=== PATIENT | male | born 2000 | race Caucasian/White ===

== ENCOUNTER 2022-10-03 14:10 | Outpatient (OUT) | payer BC, SELFPAY ==
--- NOTE | 2022-10-03 14:30 | XR_ITS ---
The [address] [address] Patient Name: CIRILO KING MRN: [id number] date: 2000 Sex: M Assigned Patient Location: [facility] Current Patient Location: [facility] Accession/Order Number: [id number] Exam Date: 10/03/2022 14:30 Report Date: 10/03/2022 15:26 At the request of: MARTINEZ FERNANDEZ Procedure: XR thoracic spine 3V EXAMINATION: XR thoracic spine 3V HISTORY: Pain in thoracic spine M54.6 COMPARISON: No relevant comparison available. FINDINGS: BONES: Mild widespread spondylosis and facet osteoarthritis. No visible acute bony abnormality. DISC SPACES: Normal. No significant disc height narrowing, subluxation, or endplate abnormality. PARASPINOUS: Negative. No paraspinous abnormality is seen. OTHER: Negative. XR/XR thoracic spine 3V IMPRESSION: Mild degenerative changes Electronically authenticated by: COLBY COPE Date: 10/03/2022 15:26
== END 2022-10-03 14:11 | disposition home or self-care (01) ==
LOC: RAD 14:20
PROVIDERS: PCP Family Medicine; Visit Provider Family Medicine
DX: M54.6 Pain in thoracic spine (principal)
CPT/HCPCS: 72072

== ENCOUNTER 2023-11-08 19:17 | Emergency (ER) | payer BC, SELFPAY ==
[2023-11-08 19:27] VITALS: BP 147/97; PULSE 88; TEMP 36.6; O2SAT 100; BMI 32.5
--- NOTE | 2023-11-08 19:30 | ECG_ITS ---
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
--- NOTE | 2023-11-08 19:42 | ED.CHESTPAI1 ---
HPI - Chest Pain General Chief Complaint: Chest Pain Stated Complaint: Chest Pain Time Seen by Provider: 11/08/23 19:36 Source: patient Mode of arrival: walk-in History of Present Illness HPI narrative: This 23-year-old male who occasionally smokes marijuana but does not smoke cigarettes presents for evaluation of a frontal headache that started earlier in the day. The patient states that he does get a history of migraine headaches. He left work early this morning and went home and took a nap after taking some Excedrin and when he woke up he still had a headache and developed left-sided chest pain with some mild shortness of breath. He does not have a fever. He denies any nausea or vomiting. He has no abdominal pain or back pain. He also states that he feels that he has more bruising than his normal for somebody his age. He does not have any lower extremity pain or swelling. There was no thunderclap presentation of the headache. At this time it is over his left eye and his chest pain is nonradiating and over his left chest wall. He denies any dizziness or diaphoresis. He denies any syncope. Related Data Home Medications ?Medication ?Instructions ?Recorded ?Confirmed No Known Home Medications 11/08/23 11/08/23 Allergies Allergy/AdvReac Type Severity Reaction Status Date / Time No Known Drug Allergies Allergy Verified 11/08/23 19:31 Review of Systems ROS Status of ROS 10 or more systems reviewed and unremarkable except as noted in history and below Exam Narrative Exam Narrative: Vital signs and Nursing Notes reviewed: Vital signs reviewed, the patient is afebrile with a normal pulse, blood pressure is elevated at 147/97, he is not hypoxic with pulse ox of 100% on room air General: Awake, alert, oriented, no acute distress, moderately overweight male, no respiratory distress HEENT: Normocephalic atraumatic, mucous membranes are moist and pink, eyes are clear, normal conjunctiva, vision is grossly intact, posterior pharynx is normal in appearance. Neck: Supple, no meningeal signs, no anterior or posterior cervical lymphadenopathy Chest: Lungs are clear to auscultation with good air entry, there is no wheezing rhonchi or rales appreciated no accessory muscle use, patient is speaking in complete sentences-no chest wall tenderness to palpation CVS: Regular rate and rhythm S1-S2, no murmurs rubs or gallops, pulses are brisk and equal bilaterally ABD: Soft, nondistended, nontender, no rebound guarding or rigidity, bowel sounds are normal, no pulsatile masses appreciated Extremities: Moving all extremities, no lower extremity tenderness or swelling noted, negative Homans' sign, pulses are brisk and equal bilaterally Skin: Normal in appearance without rash,pallor, petechiae or purpura Neuro: No focal deficits Constitutional Vital Signs, click to edit/add: Last Vital Signs Temp 97.8 F 11/08/23 19:27 Pulse 88 11/08/23 19:27 Resp 18 11/08/23 19:27 BP 147/97 H 11/08/23 19:27 Pulse Ox 100 11/08/23 19:27 O2 Del Method Room Air 11/08/23 19:27 Course Vital Signs Vital signs: Vital Signs Temperature 97.8 F 11/08/23 19:27 Pulse Rate 88 11/08/23 19:27 Respiratory Rate 18 11/08/23 19:27 Blood Pressure 147/97 H 11/08/23 19:27 Pulse Oximetry 100 11/08/23 19:27 Oxygen Delivery Method Room Air 11/08/23 19:27 Temperature 97.8 F 11/08/23 19:27 Pulse Rate 88 11/08/23 19:27 Respiratory Rate 18 11/08/23 19:27 Blood Pressure 147/97 H 11/08/23 19:27 Pulse Oximetry 100 11/08/23 19:27 Oxygen Delivery Method Room Air 11/08/23 19:27 MDM - Chest Pain MDM Narrative Medical decision making narrative: This 23-year-old male who vapes marijuana but otherwise is a non-smoker presents for evaluation of a headache that started earlier this morning and chest pain that started this afternoon after taking a nap. He has not had any fevers or chills. He states his chest pain is associated with shortness of breath. Chest pain is localized to the left side of his chest. His lungs are clear, abdomen is soft, there is no neurologic symptoms related to his headaches. EKG done upon arrival was a normal sinus rhythm with no acute findings. An IV was placed and he was medicated with Toradol with clinical improvement in his chest pain and headache. Routine labs are ordered and reviewed. He has a normal white count and hemoglobin. Electrolytes are normal. Troponin and D-dimer are both normal. The results of this was discussed with the patient and he will receive a 1 view chest x-ray prior to being discharged. I suggested that his symptoms might be viral in nature. He declines a COVID-19 test. CXR was reviewed by myself and does not show any acute findings. The patient will be discharged home at this time with recommendation for close follow-up with his family physician. Lab Data Attestation: I reviewed the patient's lab results. Labs: Lab Results 11/08/23 Range/Units 19:50 WBC 6.5 (4.0-11.0) 10^3/uL RBC 5.58 (4.70-6.10) 10^6/uL Hgb 15.1 (14.0-18.0) g/dL Hct 45.6 (42.0-54.0) % MCV 81.7 (80.0-94.0) fL MCH 27.1 (25.9-34.0) pg MCHC 33.1 (29.9-35.2) g/dL RDW 13.1 (11.0-15.0) % Plt Count 310 (150-450) 10^3/uL MPV 9.6 (9.5-13.5) fL Neut % (Auto) 45.9 (43.0-75.0) % Lymph % (Auto) 46.2 (20.5-60.0) % [place] % (Auto) 5.7 (1.7-12.0) % Eos % (Auto) 1.1 (0.9-7.0) % Baso % (Auto) 0.8 (0.2-2.0) % Neut # (Auto) 3.0 (1.4-6.5) 10^3/uL Lymph # (Auto) 3.0 (1.2-3.8) 10^3/uL [place] # (Auto) 0.4 (0.3-0.8) 10^3/uL Eos # (Auto) 0.1 (0.0-0.7) 10^3/uL Baso # (Auto) 0.1 (0.0-0.1) 10^3/uL Abs Immat Gran (auto) 0.02 (0.00-0.03) 10^3/uL Imm/Tot Granulo (auto) 0.3 (0.0-0.5) % D-Dimer <0.19 (<=0.59) mg/L FEU Sodium 138 (136-145) mmol/L Potassium 3.5 (3.5-5.1) mmol/L Chloride 102 (98-107) mmol/L Carbon Dioxide 29.2 (21.0-32.0) mmol/L Anion Gap 10.3 BUN 16.0 (7.0-18.0) mg/dL Creatinine 1.13 (0.70-1.30) mg/dL Est GFR ( Amer) >60 (>=60) Est GFR (Non-Af Amer) >60 (>=60) BUN/Creatinine Ratio 14.2 Glucose 140 H (74-106) mg/dL Calcium 9.3 (8.5-10.1) mg/dL Total Bilirubin 0.6 (0.2-1.0) mg/dL AST 21 (15-37) U/L ALT 32 (16-63) U/L Alkaline Phosphatase 64 (46-116) U/L Troponin I High Sens 4.0 (4.0-76.1) pg/mL Total Protein 7.9 (6.4-8.2) g/dL Albumin 4.3 (3.4-5.0) g/dL Globulin 3.6 g/dL Albumin/Globulin Ratio 1.2 ECG Data Attestation: I personally reviewed and interpreted this ECG as follows: (Sinus rhythm at 90 bpm, normal axis, nonspecific ST changes, no acute ST segment elevation or T wave inversion right axis deviation) Discharge Plan Discharge Stand Alone Forms: Work/School Release, Portal Instructions Chief Complaint: Chest Pain Clinical Impression: Non-cardiac chest pain, Headache, migraine Patient Disposition: Home, Self-Care Time of Disposition Decision: 21:05 Condition: Good Prescriptions / Home Meds: No Action No Known Home Medications Print Language: Setswana Instructions: Migraine Headache (ED), Noncardiac Chest Pain (ED) Referrals: Sydni Nino MD [Primary Care Provider] - 1 week
[2023-11-08] MEDS: KETOROLAC TROMETHAMINE 30 MG/ML VIAL IVP (19:58)
[2023-11-08 19:59] LABS: Basophils Absolute Auto 0.1 10^3/uL (0.0-0.1); Basophils Percent Auto 0.8 % (0.2-2.0); Eosinophils Absolute Auto 0.1 10^3/uL (0.0-0.7); Eosinophils Percent Auto 1.1 % (0.9-7.0); Hematocrit 45.6 % (42.0-54.0); Hemoglobin 15.1 g/dL (14.0-18.0); Immature Granulocytes Abs Auto 0.02 10^3/uL (0.00-0.03); Immature Granulocytes Pct Auto 0.3 % (0.0-0.5); Lymphocytes Percent Auto 46.2 % (20.5-60.0); Mean Corpuscular HGB Conc 33.1 g/dL (29.9-35.2); Mean Corpuscular Hemoglobin 27.1 pg (25.9-34.0); Mean Corpuscular Volume 81.7 fL (80.0-94.0); Mean Platelet Volume 9.6 fL (9.5-13.5); Monocytes Absolute Auto 0.4 10^3/uL (0.3-0.8); Monocytes Percent Auto 5.7 % (1.7-12.0); Neutrophils Percent Auto 45.9 % (43.0-75.0); Platelet Count 310 10^3/uL (150-450); Red Blood Count 5.58 10^6/uL (4.70-6.10); Red Cell Distribution Width 13.1 % (11.0-15.0); White Blood Count 6.5 10^3/uL (4.0-11.0)
[2023-11-08 20:14] LABS: Alanine Aminotransferase 32 U/L (16-63); Albumin Globulin Ratio 1.2; Albumin Level 4.3 g/dL (3.4-5.0); Alkaline Phosphatase 64 U/L (46-116); Anion Gap 10.3; Aspartate Amino Transferase 21 U/L (15-37); BUN Creatinine Ratio 14.2; Bilirubin Total 0.6 mg/dL (0.2-1.0); Calcium 9.3 mg/dL (8.5-10.1); Carbon Dioxide 29.2 mmol/L (21.0-32.0); Chloride 102 mmol/L (98-107); Estimated GFR (African America >60 (>=60); Estimated GFR (Non-African Ame >60 (>=60); Globulin 3.6 g/dL; Glucose 140 mg/dL (74-106); Potassium 3.5 mmol/L (3.5-5.1); Sodium 138 mmol/L (136-145); Total Protein 7.9 g/dL (6.4-8.2)
[2023-11-08 20:48] LABS: D Dimer <0.19 mg/L FEU (<=0.59)
--- NOTE | 2023-11-08 20:50 | XR_ITS ---
[address] [address] Patient Name: CIRILO KING MRN: [id number] date: 2000 Sex: M Assigned Patient Location: ER Current Patient Location: Accession/Order Number: [id number] Exam Date: 11/08/2023 20:58 Report Date: 11/08/2023 22:08 At the request of: ESPERANZA MARKER Procedure: XR chest 1V EXAM: XR Chest, 1 View CLINICAL INDICATION: CP TECHNIQUE: Frontal view of the chest. COMPARISON: 2020 FINDINGS: LUNGS AND PLEURAL SPACES: Unremarkable. No consolidation. No pneumothorax. HEART: Unremarkable. No cardiomegaly. MEDIASTINUM: Unremarkable. Normal mediastinal contour. BONES/JOINTS: Unremarkable. No acute fracture. XR/XR chest 1V IMPRESSION: Normal chest x-ray. Electronically authenticated by: CECILIA SIMONS Date: 11/08/2023 22:08
== END 2023-11-08 21:25 | disposition home or self-care (01) ==
PROVIDERS: Emergency Provider Emergency Medicine; PCP Family Medicine
DX: G43.909 Migraine, unspecified, not intractable, without status migrainosus (principal); R07.89 Other chest pain; F12.90 Cannabis use, unspecified, uncomplicated
CPT/HCPCS: 36415; 71045; 80053; 84484; 85025; 85378; 93005; 96374; 99285; J1885

== ENCOUNTER 2024-08-31 09:39 | Outpatient (OUT) | payer BC, SELFPAY ==
--- OUTSIDE RECORDS SUMMARY | 2024-08-31 09:51 | XMS_ITS | CCD ---
Author Organization [facility] Care Team Providers Care Custodial Aide Name Role Phone PHYSICIAN, DEFAULT Unavailable Unavailable PHYSICIAN, DEFAULT Unavailable Unavailable REBECCA, DR SYDNI Arora Admitting Unavailable REBECCA, DR SYDNI Arora Primary Care Unavailable REBECCA, DR SYDNI Arora Attending Unavailable [place]ILDA, DR COLBY Peguero Consulting Unavailable REBECCA, DR SYDNI Arora Admitting Unavailable REBECCA, DR SYDNI Arora Primary Care Unavailable REBECCA, DR SYDNI Arora Attending Unavailable REBECCA, DR SYDNI Arora Consulting Unavailable Rebecca Magdaleno Unavailable Sydni Nino Sydni Nino MD Primary Care Provider Sydni Nino MD Attending Provider Sydni Nino Attending Unavailable Sydni Nino Primary Care Unavailable Sydni Nino Admitting Unavailable Medications Current Medications Medication Drug Class(es) Dates Sig (Normalized) Sig (Original) acetaminophen 500 mg oral tablet (1 source) take 1 tablet by mouth every six hours as needed Acetaminophen 500 MG 1 tablet as needed Orally every 6 hrs Active amoxicillin 500 mg oral capsule (1 source) Penicillin-class Antibacterial Start: 11-29-2022 take 1 capsule by mouth every eight hours Amoxicillin 500 MG 1 capsule Orally tid for 10 day(s) Nov, Active cetirizine hydrochloride 10 mg chewable tablet (12 sources) Histamine-1 Receptor Antagonist Start: 05-13-2023 take 1 tablet by mouth once daily Cetirizine 10 mg tablet,chewable Active 10 MG PO Daily May 13, 2023 1:00am take 1 tablet by mouth once leonidas y ZyrTEC 10 MG 1 tablet Orally Once a day Active DayQuil Multi-Symptom (1 source) DayQuil Multi-Symptom Active methylPREDNISolone 4 mg oral tablet (1 source) Corticosteroid Start: 023 Medrol 4 MG as directed Orally As Directed for 6 days Jan, Active NyQuil (1 source) NyQuil Active predniSONE 20 mg oral tablet (1 source) Start: 023 take 1 tablet by mouth every twelve hours predniSONE 20 MG 1 tablet Orally bid for 5 day(s) Sep, Active Sudafed 12 Hour (1 source) Sudafed 12 Hour Active tiZANidine 4 mg oral tablet (2 sources) Central alpha-2 Adrenergic Agonist take 1 tablet by mouth every eight hours tiZANidine HCl 4 MG 1 tablet as needed Orally Three times a day for 10 days Active Completed/Discontinued Medications Medication Drug Class(es) Dates Sig (Normalized) Sig (Original) amoxicillin 875 mg / clavulanate 125 mg oral tablet (6 sources) Penicillin-class Antibacterial Start: 05-14-2023 End: 06-15-2023 take 1 tablet by mouth twice daily Amoxicillin-Pot Clavulanate 875-125 mg tablet Discontinued 1 TAB PO Twice daily May 14, 2023 1:00am June 15, 2023 10:07am azithromycin 250 mg oral tablet (6 sources) Macrolide Antimicrobial Start: 05-11-2023 End: 06-15-2023 Azithromycin 250 mg tablet Discontinued 0 PO .COMPLEX May 11, 2023 1:00am June 15, 2023 10:07am For 250 mg dose pack: take 500 mg today (day 1), then 250 mg for 4 days (days 2-5) PO Start: 05-11-2023 End: 06-15-2023 Azithromycin Discontinued 0 PO .COMPLEX May 11, 2023 1:00am June 15, 2023 10:07am For 250 mg dose pack: take 500 mg today (day 1), then 250 mg for 4 days (days 2-5) PO losartan potassium 50 mg oral tablet (7 sources) Angiotensin 2 Receptor Amado Start: 12-17-2023 End: 03-15-2024 take 1 tablet by mouth once daily Losartan 50 mg tablet Discontinued 50 MG PO daily January 25, 2024 12:17pm March 15, 2024 10:08am phentermine hydrochloride 37.5 mg oral capsule (14 sources) Sympathomimetic Amine Anorectic Start: 05-11-2023 End: 06-15-2023 take 1 capsule by mouth once daily 30 minutes after breakfast Phentermine (Adipex-P) 37.5 mg capsule Discontinued 37.5 MG PO Daily May 11, 2023 1:00am June 15, 2023 10:07am must administer 30 minutes before or 1-2 hours after breakfast Start: 04-27-2023 take 1 capsule by mo uth every twenty-four hours Adipex-P 37.5 MG 1 capsule Orally Once a day for 30 days Apr, Active Start: 03-23-2023 take 1 capsule by mo uth every twenty-four hours Adipex-P 37.5 MG 1 capsule Orally Once a day for 30 days Mar, Active Start: 01-23-2023 take 1 capsule by mo uth every twenty-four hours Adipex-P 37.5 MG 1 capsule Orally Once a day for 30 days Jan, Active Start: 12-23-2022 take 1 capsule by mo uth every twenty-four hours Adipex-P 37.5 MG 1 capsule Orally Once a day for 30 days Dec, Active Start: 11-28-2022 take 1 capsule by mo uth every twenty-four hours Adipex-P 37.5 MG 1 capsule Orally Once a day for 30 days Nov, Active Start: 11-03-2022 take 1 capsule by mo uth every twenty-four hours Adipex-P 37.5 MG 1 capsule Orally Once a day for 30 days Oct, Active Start: 10-28-2022 take 1 capsule by mo uth every twenty-four hours Adipex-P 37.5 MG 1 capsule Orally Once a day for 30 days Oct, Active Semaglutide (5 sources) Start: 11-30-2023 End: 12-17-2023 Semaglutide (Ozempic) 0.25 m g or 0.5 mg (2 mg/3 mL) pen injector Discontinued 0.25 MG SUBCUT every week November 29, 2023 11:00pm December 17, 2023 9:24am for 4 weeks Start: 11-30-2023 End: 12-17-2023 Semaglutide (Ozempic) 0.25 m g or 0.5 mg (2 mg/3 mL) pen injector Discontinued 0.25 MG SUBCUT every week November 30, 2023 12:00am December 17, 2023 10:24am for 4 weeks Start: 11-30-2023 Semaglutide (O zempic) 0.25 mg or 0.5 mg (2 mg/3 mL) pen injector Active 0.25 MG SUBCUT every week November 30, 2023 12:00am for 4 weeks Problems Active Problems Problem Classification Problem Date Documented Da te Episodic/Chronic Administrative/social admission (1 source) Person with feared health complaint in whom no diagnosis is made Episodic Anxiety disorders (16 sources) Mixed anxiety and depressive disorder; Translations: [Other specified anxiety disorders] 05-13-2023 Chronic Essential hypertension (4 sources) Hypertensive disorder; Translations: [Essential (primary) hypertension] 12-17-2023 Chronic Headache; including migraine (2 sources) Headache; Translations: [Headache] 01-29-2024 Episodic Influenza (3 sources) Influenza due to Influenza A virus; Translations: [Influenza due to other identified influenza virus with other respiratory manifestations] 03-15-2024 Episodic Other circulatory disease (2 sources) Elevated blood-pressure reading without diagnosis of hypertension; Translations: [Elevated blood-pressure reading, without diagnosis of hypertension] Episodic Other nutritional; endocrine; and metabolic disorders (4 sources) Obese class II; Translations: [Body mass index (BMI) 35.0-35.9, adult] Chronic Other nutritional; endocrine; and metabolic disorders (14 sources) Obesity caused by energy imbalance; Translations: [Other obesity due to excess calories] 05-13-2023 Chronic Other nutritional; endocrine; and metabolic disorders (12 sources) Obesity; Translations: [Obesity, unspecified] 11-30-2023 Chronic Other nutritional; endocrine; and metabolic disorders (20 sources) Body mass index 30+ - obesity; Translations: [Body mass index (BMI) 37.0-37.9, adult] 06-15-2023 Chronic Other nutritional; endocrine; and metabolic disorders (6 sources) Other obesity due to excess calories Chronic Other nutritional; endocrine; and metabolic disorders (1 source) Body mass index (BMI) 36.0-36.9, adult Chronic Other nutritional; endocrine; and metabolic disorders (1 source) Body mass index (BMI) 34.0-34.9, adult Chronic Other nutritional; endocrine; and metabolic disorders (1 source) Body mass index (BMI) 33.0-33.9, adult Chronic Other nutritional; endocrine; and metabolic disorders (3 sources) Body mass index (BMI) 32.0-32.9, adult; Translations: [Body Mass Index 32.0-32.9, adult] Chronic Other nutritional; endocrine; and metabolic disorders (1 source) Obesity, unspecified; Translations: [Obesity, unspecified] 11-30-2023 Chronic Other nutritional; endocrine; and metabolic disorders (2 sources) Abnormal weight gain; Translations: [Abnormal weight gain] Episodic Other screening for suspected conditions (not mental disorders or infectious disease) (16 sources) Blood chemistry abnormal; Translations: [Other specified abnormal findings of blood chemistry] 05-13-2023 Episodic Other skin disorders (6 sources) Localized swelling, mass and lump, left lower limb; Translations: [LOC SWELL MASS LUMP LT LOWER LIMB] Onset: 02-28-2022 Episodic Other upper respiratory infections (20 sources) Acute pharyngitis, unspecified; Translations: [Acute upper respiratory infection] Episodic Viral infection (7 sources) Disease caused by 2019-nCoV; Translations: [COVID-19] 05-14-2023 Episodic Viral infection (2 sources) Disease caused by 2019-nCoV; Translations: [COVID-19] Past or Other Problems Problem Classification Problem Date Documented Da te Episodic/Chronic Spondylosis; intervertebral disc disorders; other back problems (1 source) Cervicalgia; Translations: [Cervicalgia] Onset: 02-09-2024 Episodic Results Test Name Value Interpretation Reference Range Facility Influenza virus B Ag [Presen ce] in Upper respiratory specimen by Rapid immunoassayon 03-15-2024 FLUBV Ag IA.rapid Ql (Nph) Influenza virus B Ag [Presence] in Upper respiratory specimen by Rapid immunoassay [facility] No Panel Informationon 03-15 Influenza Type A (Rapid) Positive [facility] POC SARS CoV-2 Antigen Negative [facility] No Panel InformationOrdered By: Meryl Quiroz on 03-15-2024 Quick Strep (POC) [facility] Basophils Auto (Bld) [#/Vol] on 11-08-2023 Basophils (Bld) [#/Vol] 0.1 10 3/uL 0.0-0.1 [facility] Basophils (Bld) [#/Vol] Automated basophil count 0.0-0.1 [facility] Basophils/100 WBC Auto (Bld) on 11-08-2023 Basophils/100 WBC (Bld) 0.8 % 0.2-2.0 [facility] Basophils/100 WBC (Bld) Automated basophil % 0.2-2.0 [facility] Eosinophils/100 WBC Auto (Bl d)on 11-08-2023 Eosinophils/100 WBC (Bld) 1.1 % 0.9-7.0 [facility] Eosinophils/100 WBC (Bld) Automated eosinophil % 0.9-7.0 [facility] Erythrocyte distribution wid th Auto (RBC) [Ratio]on 11-08-2023 Erythrocyte distribution width (RBC) [Ratio] 13.1 % 11.0-15.0 [facility] Erythrocyte distribution width (RBC) [Ratio] Erythrocyte distribution width [Ratio] by Automated count 11.0-15.0 [facility] Estimated glomerular filtrat ion rate (GFR) non- Americanon 11-08-2023 GFR/1.73 sq M.predicted among non-blacks MDRD (S/P/Bld) [Vol rate/Area] mL/min/{1.73_m2} >=60 [facility] GFR/1.73 sq M.predicted among non-blacks MDRD (S/P/Bld) [Vol rate/Area] Estimated glomerular filtration rate (GFR) non- >=60 [facility] Fibrin D-dimer [Presence] in Platelet poor plasma by Latex agglutinationon 11-08-2023 Fibrin D-dimer LA Ql (PPP) <0.19 mg/L FEU <=0.59 [facility] Comment on above: Increases in D-Dimer concentration observed withthromboembolic events can be variable due to localization,size, and age of the thrombus. Therefore, a thromboembolicevent cannot be diagnosed with certainty on the basis of thereference range. D-Dimers may also be elevated for a varietyof disorders including advanced age, , coronarydisease, cancer, liver disease, infection, inflammation,hematoma, DIC, trauma, post-surgery, diabetes, thrombolyticor anticoagulant therapy, stress, and generalizedhospitalization. Fibrin D-dimer LA Ql (PPP) Fibrin D-dimer [Presence] in Platelet poor plasma by Latex agglutination <=0.59 [facility] Comment on above: Increases in D-Dimer concentration observed withthromboembolic events can be variable due to localization,size, and age of the thrombus. Therefore, a thromboembolicevent cannot be diagnosed with certainty on the basis of thereference range. D-Dimers may also be elevated for a varietyof disorders including advanced age, , coronarydisease, cancer, liver disease, infection, inflammation,hematoma, DIC, trauma, post-surgery, diabetes, thrombolyticor anticoagulant therapy, stress, and generalizedhospitalization. Globulin Calc (S) [Mass/Vol] on 11-08-2023 Globulin (S) [Mass/Vol] 3.6 g/dL [facility] Globulin (S) [Mass/Vol] Serum globulin measurement by calculation (mass/volume) [facility] Hematocrit Auto (Bld) [Volum e fraction]on 11-08-2023 Hematocrit (Bld) [Volume fraction] 45.6 % 42.0-54.0 [facility] Hematocrit (Bld) [Volume fraction] Hematocrit [Volume Fraction] of Blood by Automated count 42.0-54.0 [facility] Hemoglobin [Mass/volume] in Bloodon 11-08-2023 Hemoglobin (Bld) [Mass/Vol] 15.1 g/dL 14.0-18.0 [facility] Hemoglobin (Bld) [Mass/Vol] Hemoglobin [Mass/volume] in Blood 14.0-18.0 [facility] Laboratory - Chemistry and C hemistry - challengeon 11-08-2023 Albumin [Mass/Vol] 4.3 g/dL 3.4-5.0 [facility] ALP [Catalytic activity/Vol] 64 U/L 46-116 [facility] ALT [Catalytic activity/Vol] 32 U/L 16-63 [facility] AST [Catalytic activity/Vol] 21 U/L 15-37 [facility] Bilirubin [Mass/Vol] 0.6 mg/dL 0.2-1.0 [facility] Calcium [Mass/Vol] 9.3 mg/dL 8.5-10.1 [facility] Chloride [Moles/Vol] 102 mmol/L 98-107 [facility] CO2 [Moles/Vol] 29.2 mmol/L 21.0-32.0 [facility] Creatinine [Mass/Vol] 1.13 mg/dL 0.70-1.30 [facility] GFR/1.73 sq M.predicted MDRD (S/P/Bld) [Vol rate/Area] mL/min/{1.73_m2} >=60 [facility] Glucose [Mass/Vol] 140 mg/dL High 74-106 [facility] Potassium [Moles/Vol] 3.5 mmol/L 3.5-5.1 [facility] Protein [Mass/Vol] 7.9 g/dL 6.4-8.2 [facility] Sodium [Moles/Vol] 138 mmol/L 136-145 [facility] Urea nitrogen [Mass/Vol] 16.0 mg/dL 7.0-18.0 [facility] Urea nitrogen/Creatinine [Mass ratio] 14.2 mg/mg [facility] Laboratory - Hematology and Cell countson 11-08-2023 Immature granulocytes/100 WBC (Bld) 0.3 % 0.0-0.5 [facility] Leukocytes [#/volume] correc eva for nucleated erythrocytes in Blood by Automated counon 11-08-2023 WBC corrected for nucl RBC Auto (Bld) [#/Vol] 6.5 10 3/uL 4.0-11.0 [facility] WBC corrected for nucl RBC Auto (Bld) [#/Vol] Leukocytes [#/volume] corrected for nucleated erythrocytes in Blood by Automated coun 4.0-11.0 [facility] Lymphocytes Auto (Bld) [#/Vo l]on 11-08-2023 Lymphocytes (Bld) [#/Vol] 3.0 10 3/uL 1.2-3.8 [facility] Lymphocytes (Bld) [#/Vol] Lymphocytes [#/volume] in Blood by Automated count 1.2-3.8 [facility] Lymphocytes/100 WBC Auto (Bl d)on 11-08-2023 Lymphocytes/100 WBC (Bld) 46.2 % 20.5-60.0 [facility] Lymphocytes/100 WBC (Bld) Lymphocytes/100 leukocytes in Blood by Automated count 20.5-60.0 [facility] MCH Auto (RBC) [Entitic mass ]on 11-08-2023 MCH (RBC) [Entitic mass] 27.1 pg 25.9-34.0 [facility] MCH (RBC) [Entitic mass] MCH [Entitic mass] by Automated count 25.9-34.0 [facility] MCHC Auto (RBC) [Mass/Vol]on 11-08-2023 MCHC (RBC) [Mass/Vol] 33.1 g/dL 29.9-35.2 [facility] MCHC (RBC) [Mass/Vol] MCHC [Mass/volume] by Automated count 29.9-35.2 [facility] MCV Auto (RBC) [Entitic vol] on 11-08-2023 MCV (RBC) [Entitic vol] 81.7 fL 80.0-94.0 [facility] MCV (RBC) [Entitic vol] MCV [Entitic volume] by Automated count 80.0-94.0 [facility] Monocytes Auto (Bld) [#/Vol] on 11-08-2023 Monocytes (Bld) [#/Vol] 0.4 10 3/uL 0.3-0.8 [facility] Monocytes (Bld) [#/Vol] Automated blood monocyte count 0.3-0.8 [facility] Monocytes/100 WBC Auto (Bld) on 11-08-2023 Monocytes/100 WBC (Bld) 5.7 % 1.7-12.0 [facility] Monocytes/100 WBC (Bld) Automated monocyte % 1.7-12.0 [facility] Neutrophils Auto (Bld) [#/Vo l]on 11-08-2023 Neutrophils (Bld) [#/Vol] 3.0 10 3/uL 1.4-6.5 [facility] Neutrophils (Bld) [#/Vol] Neutrophils [#/volume] in Blood by Automated count 1.4-6.5 [facility] Neutrophils/100 WBC Auto (Bl d)on 11-08-2023 Neutrophils/100 WBC (Bld) 45.9 % 43.0-75.0 [facility] Neutrophils/100 WBC (Bld) Automated neutrophil % 43.0-75.0 [facility] No Panel Informationon 11-07 Eosinophils # (Auto) 0.1 10 3/uL 0.0-0.7 [facility] Immature Granulocyte # (Auto) 0.02 10 3/uL 0.00-0.03 [facility] Troponin I High Sensitivity 4.0 pg/mL 4.0-76.1 [facility] Comment on above: CUT-OFF POINTS HAVE BEEN ESTABLISHED BASED ON THE FOURTHUNIVERSAL DEFINITION OF MYOCARDIAL INFARCTION. THE UPPERREFERENCE LIMIT (URL) OF TROPONIN, DEFINED THE 99THPERCENTILE OF cTnI DISTRIBUTION IN A REFERENCE POPULATION,HAS BEEN CONFIRMED THE DECISION THRESHOLD FOR MIDIAGNOSIS.99TH PERCENTILE = 76.2 PG/MLNOTE: HIGH-SENSITIVITY TROPONIN ASSAY IS NOT INTENDED TO BEUSED IN ISOLATION BUT SHOULD BE INTERPRETED IN CONJUNCTIONWITH OTHER DIAGNOSTIC AND CLINICAL INFORMATION. Platelet mean volume Auto (B ld) [Entitic vol]on 11-08-2023 Platelet mean volume (Bld) [Entitic vol] 9.6 fL 9.5-13.5 [facility] Platelet mean volume (Bld) [Entitic vol] Platelet mean volume [Entitic volume] in Blood by Automated count 9.5-13.5 [facility] Platelets Auto (Bld) [#/Vol] on 11-08-2023 Platelets (Bld) [#/Vol] 310 10 3/uL 150-450 [facility] Platelets (Bld) [#/Vol] Platelets [#/volume] in Blood by Automated count 150-450 [facility] RBC Auto (Bld) [#/Vol]on RBC (Bld) [#/Vol] 5.58 10 6/uL 4.70-6.10 [facility] RBC (Bld) [#/Vol] Erythrocytes [#/volume] in Blood by Automated count 4.70-6.10 [facility] Serum or plasma albumin/glob ulin mass ratioon 11-08-2023 Albumin/Globulin [Mass ratio] 1.2 {ratio} [facility] Albumin/Globulin [Mass ratio] Serum or plasma albumin/globulin mass ratio [facility] Serum or plasma anion gap de terminationon 11-08-2023 Anion gap [Moles/Vol] 10.3 [facility] Anion gap [Moles/Vol] Serum or plasma an ion gap determination [facility] No Panel InformationOrdered By: Meryl Quiroz on 05-11-2023 Quick Strep (POC) [facility] Quick Strepon 01-28-2023 S. pyogenes Org specific cx Ql (Throat) Negative [employer] Other Quick Strep [employer] Other Quick Strepon 11-29-2022 S. pyogenes Org specific cx Ql (Throat) Positive [employer] Other Quick Strep [employer] Other Quick Strepon 09-21-2022 S. pyogenes Org specific cx Ql (Throat) Negative [employer] Other Quick Strep [employer] Other US EXT NON VASC LIMITED LTon 02-28-2022 US EXT NON VASC LIMITED LT EXAMINATION: US EXT NON VASC LIMITED LT HISTORY: Localized swelling of left lower limb COMPARISON: No relevant comparison available. FINDINGS: Identified in the area the patient's palpable mass is a 0.9 x 0.7 x 0.3 cm oval well-circumscribed area of hypoechogenicity along the junction of the subcutaneous fat and muscle. This lesion is indeterminate. IMPRESSION: Indeterminate 0.9 cm soft tissue mass corresponding to the patient's palpable abnormality. Electronically authenticated by: COLBY COPE Date: 2022-02-28 10:25 Normal [facility] Lab Reportson 11-21-2020 Lab Reports [id number]:127 Normal [facility] Lab Reportson 11-14-2020 Lab Reports [id number]:127 Normal [facility] Formson 11-13-2020 Forms [id number]:127 [facility] Physician Referralon 021 Physician Referral [id number]:127 [facility] Ambulatory Clinical Summaryo n 11-12-2020 Ambulatory Clinical Summary {[id number] [facility] Patient Educationon 11-13-19 21 Patient Education Urology Testicular Self-Exam A self-examination of your testicles (testicular self-exam) involves looking at and feeling your testicles for abnormal lumps or swelling. Several things can cause swelling, lumps, or pain in your testicles. Some of these causes are: ? Injuries. ? Inflammation. ? Infection. ? Buildup of fluids around your testicle (hydrocele). ? Twisted testicles (testicular torsion). ? Testicular cancer. Why is it important to do a testicular self-exam? Self-examination of the testicles and the left and right groin areas may be recommended if you are at risk for testicular cancer. Your groin is where your lower abdomen meets your upper thighs. You may be at risk for testicular cancer if you have: ? An undescended testicle (cryptorchidism). ? A history of previous testicular cancer. ? A family history of testicular cancer. How to do a testicular self-exam The testicles are easiest to examine after a warm bath or shower. They are more difficult to examine when you are cold. This is because the muscles attached to the testicles retract and pull them up higher or into the abdomen. A normal testicle is egg-shaped and feels firm. It is smooth and not tender. The spermatic cord can be felt as a firm, spaghetti-like cord at the back of your testicle. Look and feel for changes ? Stand and hold your penis away from your body. ? Look at each testicle to check for lumps or swelling. ? Roll each testicle between your thumb and forefinger, feeling the entire testicle. Feel for: ? Lumps. ? Swelling. ? Discomfort. ? Check the groin area between your abdomen and upper thighs on both sides of your body. Look and feel for any swelling or bumps that are tender. These could be enlarged lymph nodes. Contact a health care provider if: ? You find any bumps or lumps, such as a small, hard, pea-sized lump. ? You find swelling, pain, or soreness. ? You see or feel any other changes in your testicles. Summary ? A self-examination of your testicles (testicular self-exam) involves looking at and feeling your testicles for any changes. ? Self-examination of the testicles and the left and right groin areas may be recommended if you are at risk for testicular cancer. ? You should check each of your testicles for lumps, swelling, or discomfort. ? You should check for swelling or tender bumps in your groin area between your lower abdomen and upper thighs. This information is not intended to replace advice given to you by your health care provider. Make sure you discuss any questions you have with your health care provider. Document Released: 06/08/2001 Document Revised: 06/23/2019 Document Reviewed: 01/26/2017 [facility] Patient Education ? 2019 [employer]. Normal [facility] Urology Office/Clinic Noteon 11-12-2020 Urology Office/Clinic Note Chief Complaint Pt is here for low testosterone HPI Staff Gil is a 20 y.o. male new patient here for possible low testosterone. Testosterone level drawn on 09/12/20 was 296. Pt states he tried testosterone injections at home last year prescribed by Dr. Galvan, but nothing changed so he was referred here by his new PCP Dr. Nino. Dysuria: denies Incomplete bladder emptying: denies Hematuria: denies Frequency: denies Urgency: denies Nocturia: denies Stream: steady stream Leaking: denies Post void dripping: denies Wearing pads/ Depends: denies Urge incontinence: denies Stress incontinence: denies Incontinence without Sensory Awareness: denies Abdominal pain: denies Flank pain: denies Sexual complaints: _ History of Present Illness He has an uncle who had a testosterone issue that was genetically based. Once he was treated, he improved greatly. Reviewed UA, testosterone, and referral. There have been no associated fever, chills, flank pain or blood in the urine. Pt. denies any pain/burning with urination at this time. Review of Systems PHQ Score Initial Depression Screen Score: 0 ROS - Provider Constitutional: denies weight loss, denies hot flashes. Eyes: denies eye problems. Gastrointestinal: denies nausea, denies vomiting. Cardiovascular: denies chest pain or angina. Integumentary: no dryness Musculoskeletal: denies musculoskeletal symptoms. ENMT: denies otolaryngeal symptoms. Respiratory: no shortness of breath. Heme/Lymph: denies easy bleeding tendency, denies easy bruising tendency. Psychiatric: no confusion, no anxiety. Genitourinary: denies dysuria, denies hematuria, denies discharge, denies urinary frequency, denies urinary hesitancy, denies nocturia, denies incontinence, denies genital sores, denies decreased libido, and denies erectile dysfunction. Physical Exam Vitals & Measurements HR: 68(Peripheral) BP: 134/85 HT: 185 cm HT: 185.0 cm WT: 115 kg WT: 115.0 kg BMI: 33.6 General Appearance: alert, no distress, well nourished, well developed male. Head: normocephalic . Eyes: normal orbit and globe. ENMT: normal examination of external ears. Chest: Lungs CTA, respirations non labored. Cardiovascular: regular rate and rhythm. Abdomen: soft, non distended, no tenderness, no mass or organomegaly, no hernia. Genitourinary: normal scrotum, normal testes, normal urethra, normal epididymis, normal vas deferens/spermatic cord. Flank Pain: none. Bladder: nonpalpable. Penis: normal shaft, normal glans. Lymph Nodes: unremarkable palpation of the cervical area. Skin: warm, dry, no bruising. Psychiatric: cooperative, affect appropriate for age, normal judgement, euthymic mood. Assessment/Plan 1. Hypogonadism male (E29.1: Testicular hypofunction) Testosterone drawn on 09/12/2020 w/ a level of 296 (264 - 916). Pt. has used injections in the past w/ no success. Pt. feels that this may be genetic related. Exam looks normal today. Will have pt. obtain another Testosterone level along w/ LH, FSH, and prolactin labs. We may refer pt. to a infertility clinic for further testings if labs are abnormal. Will call pt. w/ results. All questions/concerns were discussed. Pt. to call the office if heencounters any issues prior. Pt. acknowledges understanding. I have reviewed the previous health record information and history for this pt. from Dr. Galindo. Follow-up With When Contact Information RM QUINONES, Nilson Kan, URL [address] [place] [address]- [phone] Additional Instructions: Patient Education Testicular Self-Exam I, Hoa Emmanuel , personally scribed for Dr. Galindo on 11/12/2020 14:48:34. . Documentation recorded by the scribe, Hoa Emmanuel, accurately reflects the services(s) I performed and decisions made by me. Authenticated by Dr. Galindo on 11/12/2020 14:51:01. Problem List/Past Medical History Ongoing Depression Hypertension Hypogonadism male Low testosterone Historical No qualifying data Medications Adipex-P 37.5 mg Tab, 37.5 mg= 1 tab(s), Oral, Daily Allergies No Known Allergies Social History Tobacco Never (less than 100 in lifetime) Tobacco Use:. Never Smokeless Tobacco Use:., 11/12/2020 Family History Cancer: Mother. Drug dependence: Father. Lab Results Ambulatory Point of Care Results Bilirubin Urine Dipstick: 1+ Small (11/12/20 13:55:00) Blood Urine Dipstick: Trace-intact (11/12/20 13:55:00) Glucose Urine Dipstick: Negative (11/12/20 13:55:00) Ketones Urine Dipstick: 1+ 15 mg/dl (11/12/20 13:55:00) Leukocytes Urine Dipstick: Negative (11/12/20 13:55:00) Nitrite Urine Dipstick: Negative (11/12/20 13:55:00) Protein Urine Dipstick: 1+ (30 mg/dl) (11/12/20 13:55:00) Specific [place] Urine Dipstick: >=1.030 (11/12/20 13:55:00) Urine Appearance Urine Dipstick: Clear (11/12/20 13:55:00) Urine Color Urine Dipstick: Yellow (11/12/20 13:55:00 (more content not included)... Normal [facility] Comment on above: Result Comment: Elec tronically Signed By: RM QUINONES, Nilson Kan\.br\Date and Time Signed: 11/12/20 14:51 EDT\.br\Electronically Co-Signed By: Hoa Emmanuel MA\.br\Date and Time Co-Signed: 11/12/20 14:49 EDT Vital Signs Date Time Vital Sign Value Performing Clinician Facility 06-24-2024 09:15-0400 Body height 182.88 cm [facility] 06-24-2024 09:15-0400 Body mass index (BMI) [Ratio] 36.1 kg/m2 [facility] 06-24-2024 09:15-0400 Body weight 120.65 kg [facility] 06-24-2024 09:15-0400 Diastolic blood pressure 87 mm[Hg] [facility] 06-24-2024 09:15-0400 Heart rate 84 /min [facility] 06-24-2024 09:15-0400 Respiratory rate 12 /min [facility] 06-24-2024 09:15-0400 SaO2% (BldA) [Mass fraction] 98 % [facility] 06-24-2024 09:15-0400 Systolic blood pressure 125 mm[Hg] [facility] 03-15-2024 09:05-0500 Body height 182.88 cm Sydni Nino MD Work Phone: [facility] 03-15-2024 09:05-0500 Body mass index (BMI) [Ratio] 35.1 kg/m2 Sydni Nino MD Work Phone: [facility] 03-15-2024 09:05-0500 Body temperature 99 [degF] Sydni Nino MD Work Phone: [facility] 03-15-2024 09:05-0500 Body weight 117.48 kg Sydni Nino MD Work Phone: [facility] 03-15-2024 09:05-0500 Diastolic blood pressure 91 mm[Hg] Sydni Nino MD Work Phone: [facility] 03-15-2024 09:05-0500 Heart rate 108 /min Sydni Nino MD Work Phone: [facility] 03-15-2024 09:05-0500 Respiratory rate 16 /min Sydni Nino MD Work Phone: [facility] 03-15-2024 09:05-0500 SaO2% (BldA) [Mass fraction] 99 % Sydni Nino MD Work Phone: [facility] 03-15-2024 09:05-0500 Systolic blood pressure 135 mm[Hg] Sydni Nino MD Work Phone: [facility] 01-25-2024 10:41-0500 Body height 182.88 cm [facility] 01-25-2024 10:41-0500 Body mass index (BMI) [Ratio] 32.5 kg/m2 [facility] 01-25-2024 10:41-0500 Body weight 108.86 kg [facility] 01-25-2024 10:41-0500 Diastolic blood pressure 85 mm[Hg] [facility] 01-25-2024 10:41-0500 Heart rate 84 /min [facility] 01-25-2024 10:41-0500 Systolic blood pressure 117 mm[Hg] [facility] 12-17-2023 10:22-0400 Body height 182.88 cm [facility] 12-17-2023 10:22-0400 Body mass index (BMI) [Ratio] 33.8 kg/m2 [facility] 12-17-2023 10:22-0400 Body weight 113.11 kg [facility] 12-17-2023 10:22-0400 Diastolic blood pressure 92 mm[Hg] [facility] 12-17-2023 10:22-0400 Heart rate 78 /min [facility] 12-17-2023 10:22-0400 Respiratory rate 16 /min [facility] 12-17-2023 10:22-0400 SaO2% (BldA) [Mass fraction] 98 % [facility] 12-17-2023 10:22-0400 Systolic blood pressure 148 mm[Hg] [facility] 11-30-2023 08:44-0400 Body height 182.88 cm [facility] 11-30-2023 08:44-0400 Body mass index (BMI) [Ratio] 33 kg/m2 [facility] 11-30-2023 08:44-0400 Body weight 110.67 kg [facility] 11-30-2023 08:44-0400 Diastolic blood pressure 98 mm[Hg] [facility] 11-30-2023 08:44-0400 Heart rate 99 /min [facility] 11-30-2023 08:44-0400 Systolic blood pressure 138 mm[Hg] [facility] 06-15-2023 09:48-0400 Body height 182.88 cm [facility] 06-15-2023 09:48-0400 Body mass index (BMI) [Ratio] 32.7 kg/m2 [facility] 06-15-2023 09:48-0400 Body weight 109.37 kg [facility] 06-15-2023 09:48-0400 Diastolic blood pressure 84 mm[Hg] [facility] 06-15-2023 09:48-0400 Heart rate 90 /min [facility] 06-15-2023 09:48-0400 Systolic blood pressure 135 mm[Hg] [facility] 05-11-2023 11:23-0500 Body height 182.88 cm [facility] 05-11-2023 11:23-0500 Body mass index (BMI) [Ratio] 33 kg/m2 [facility] 05-11-2023 11:23-0500 Body temperature 99.4 [degF] [facility] 05-11-2023 11:23-0500 Body weight 110.73 kg [facility] 05-11-2023 11:23-0500 Heart rate 110 /min [facility] 05-11-2023 11:23-0500 Respiratory rate 18 /min [facility] 05-11-2023 11:23-0500 SaO2% (BldA) [Mass fraction] 99 % [facility] 04-27-2023 09:45-0500 Body height 182.88 cm Sydni Nino Other [facility] [employer] Other 04-27-2023 09:45-0500 Body mass index (BMI) [Ratio] 32.95 kg/m2 Sydni Nino Other [facility] [employer] Other 04-27-2023 09:45-0500 Body weight 110.22 kg Sydni Nino Other [facility] [employer] Other 04-27-2023 09:45-0500 Diastolic blood pressure 82 mm[Hg] Sydni Nino Other [facility] [employer] Other 04-27-2023 09:45-0500 Systolic blood pressure 119 mm[Hg] Sydni Nino Other [facility] [employer] Other 03-23-2023 14:30-0500 Body height 182.88 cm Sydni Nino Other [facility] 03-23-2023 14:30-0500 Body mass index (BMI) [Ratio] 32.44 kg/m2 Sydni Nino Other [facility] [employer] Other 03-23-2023 14:30-0500 Body weight 108.5 kg Sydni Nino Other [facility] [employer] Other 03-23-2023 14:30-0500 Body weight 108.49 kg [facility] 03-23-2023 14:30-0500 Diastolic blood pressure 68 mm[Hg] Sydni Nino Other [facility] 03-23-2023 14:30-0500 Systolic blood pressure 126 mm[Hg] Sydni Nino Other [facility] 01-28-2023 18:00-0500 Body height 182.88 cm Rebecca Magdaleno Other [employer] Other 01-28-2023 18:00-0500 Body mass index (BMI) [Ratio] 34.17 kg/m2 Rebecca Magdaleno Other [employer] Other 01-28-2023 18:00-0500 Body temperature 99.8 [degF] Rebecca Magdaleno Other [employer] Other 01-28-2023 18:00-0500 Body weight 114.31 kg Rebecca Magdaleno Other [employer] Other 01-28-2023 18:00-0500 Diastolic blood pressure 88 mm[Hg] Rebecca Magdaleno Other [employer] Other 01-28-2023 18:00-0500 Respiratory rate 20 /min Rebecca Magdaleno Other [employer] Other 01-28-2023 18:00-0500 SaO2% (BldA) [Mass fraction] 98 % Rebecca Magdaleno Other [employer] Other 01-28-2023 18:00-0500 Systolic blood pressure 152 mm[Hg] Rebecca Magdaleno Other [employer] Other 01-23-2023 14:15-0500 Body height 182.88 cm Sydni Nino Other [employer] Other 01-23-2023 14:15-0500 Body mass index (BMI) [Ratio] 33.82 kg/m2 Sydni Nino Other [employer] Other 01-23-2023 14:15-0500 Body weight 113.13 kg Sydni Nino Other [employer] Other 01-23-2023 14:15-0500 Diastolic blood pressure 88 mm[Hg] Sydni Nino Other [employer] Other 01-23-2023 14:15-0500 Systolic blood pressure 127 mm[Hg] Sydni Nino Other [employer] Other 12-23-2022 08:45-0400 Body height 182.88 cm Sydni Nino Other [employer] Other 12-23-2022 08:45-0400 Body mass index (BMI) [Ratio] 34.69 kg/m2 Sydni Nino Other [employer] Other 12-23-2022 08:45-0400 Body weight 116.03 kg Sydni Nino Other [employer] Other 12-23-2022 08:45-0400 Diastolic blood pressure 88 mm[Hg] Sydni Nino Other [employer] Other 12-23-2022 08:45-0400 Respiratory rate 16 /min Sydni Nino Other [employer] Other 12-23-2022 08:45-0400 Systolic blood pressure 138 mm[Hg] Sydni Nino Other [employer] Other 11-29-2022 09:15-0400 Body height 182.88 cm Rebecca Magdaleno Other [employer] Other 11-29-2022 09:15-0400 Body mass index (BMI) [Ratio] 35.37 kg/m2 Rebecca Sharla Other [employer] Other 11-29-2022 09:15-0400 Body temperature 98.3 [degF] Rebecca Sharla Other [employer] Other 11-29-2022 09:15-0400 Body weight 118.3 kg Rebecca Sharla Other [employer] Other 11-29-2022 09:15-0400 Diastolic blood pressure 89 mm[Hg] Rebecca Sharla Other [employer] Other 11-29-2022 09:15-0400 Respiratory rate 16 /min Rebecca Sharla Other [employer] Other 11-29-2022 09:15-0400 SaO2% (BldA) [Mass fraction] 98 % Rebecca Sharla Other [employer] Other 11-29-2022 09:15-0400 Systolic blood pressure 138 mm[Hg] Rebecca Sharla Other [employer] Other 11-03-2022 11:30-0400 Body height 182.88 cm Sydni Nino Other [employer] Other 11-03-2022 11:30-0400 Body mass index (BMI) [Ratio] 36.07 kg/m2 Sydni Nino Other [employer] Other 11-03-2022 11:30-0400 Body weight 120.66 kg Sydni Nino Other [employer] Other 11-03-2022 11:30-0400 Diastolic blood pressure 89 mm[Hg] Sydni Nino Other [employer] Other 11-03-2022 11:30-0400 Systolic blood pressure 147 mm[Hg] Sydni Nino Other [employer] Other 09-21-2022 10:25-0400 Body height 182.88 cm Rebecca Sharla Other [employer] Other 09-21-2022 10:25-0400 Body mass index (BMI) [Ratio] 38.01 kg/m2 Rebecca Sharla Other [employer] Other 09-21-2022 10:25-0400 Body temperature 97.8 [degF] Rebecca Sharla Other [employer] Other 09-21-2022 10:25-0400 Body weight 127.14 kg Rebecca Sharla Other [employer] Other 09-21-2022 10:25-0400 Diastolic blood pressure 87 mm[Hg] Rebecca Sharla Other [employer] Other 09-21-2022 10:25-0400 Respiratory rate 18 /min Rebecca Sharla Other [employer] Other 09-21-2022 10:25-0400 SaO2% (BldA) [Mass fraction] 99 % Rebecca Sharla Other [employer] Other 09-21-2022 10:25-0400 Systolic blood pressure 134 mm[Hg] Rebecca Sharla Other [employer] Other Encounters Encounter Date Encounter Type Care Provider Facility Start: 06-24-2024 End: 06-24-2024 [facility] Work Phone: Start: 06-24-2024 End: 06-24-2024 Patient encounter procedure [facility] Physician [facility] Work Phone: Start: 03-15-2024 End: 03-15-2024 Patient encounter procedure Sydni Nino MD Work Phone: [facility] Work Phone: Start: 02-09-2024 End: 02-09-2024 ambulatory Sydni Nino MD Work Phone: [facility] Work Phone: Start: 02-09-2024 End: 02-09-2024 Discharged Recurring Sydni Nino MD Work Phone: [facility] Start: 01-25-2024 End: 01-25-2024 ambulatory [facility] Work Phone: Start: 01-25-2024 End: 01-25-2024 Patient encounter procedure [facility] Physician [facility] Work Phone: Start: 12-17-2023 End: 12-17-2023 ambulatory [facility] Work Phone: Start: 12-17-2023 End: 12-17-2023 Patient encounter procedure [facility] Physician [facility] Work Phone: Start: 11-30-2023 End: 11-30-2023 ambulatory [facility] Work Phone: Start: 11-30-2023 End: 11-30-2023 Patient encounter procedure [facility] Physician [facility] Work Phone: Start: 11-09-2023 Non-patient / Non-visit [facility] Physician [facility] Work Phone: Start: 11-08-2023 Non-patient / Non-visit [facility] Physician [facility] Work Phone: Start: 06-15-2023 End: 06-15-2023 ambulatory [facility] Work Phone: Start: 06-15-2023 End: 06-15-2023 Patient encounter procedure [facility] Work Phone: Start: 05-14-2023 End: 05-14-2023 Patient encounter procedure [facility] Physician [facility] Work Phone: Start: 05-11-2023 End: 05-11-2023 Patient encounter procedure [facility] Work Phone: Start: 04-27-2023 End: 04-27-2023 ambulatory Sydni Nino Other [employer] Other Start: 04-27-2023 Office outpatient visit 15 minutes Sydni Nino [facility] Start: 03-23-2023 End: 03-23-2023 ambulatory Sydni Nino Other [employer] Other Start: 03-23-2023 Office outpatient visit 10 minutes Sydni Nino [facility] Start: 03-23-2023 End: 03-23-2023 Patient encounter procedure [facility] Physician [facility] Work Phone: Start: 01-28-2023 End: 01-28-2023 ambulatory Rebecca Magdaleno Other [employer] Other Start: 01-28-2023 Office outpatient visit 15 minutes Rebecca Magdaleno [facility] Start: 01-23-2023 End: 01-23-2023 ambulatory Sydni Nino Other [employer] Other Start: 01-23-2023 Office outpatient visit 10 minutes Sydni Nino [facility] Start: 12-23-2022 End: 12-23-2022 ambulatory Sydni Nino Other [employer] Other Start: 12-23-2022 Office outpatient visit 10 minutes Sydni Nino [facility] Start: 11-29-2022 End: 11-29-2022 ambulatory Rebecca Magdaleno Other [employer] Other Start: 11-29-2022 Office outpatient visit 15 minutes Rebecca Sharla [facility] Start: 11-03-2022 End: 11-03-2022 ambulatory Sydni Nino Other [employer] Other Start: 11-03-2022 Office outpatient visit 15 minutes Sydni Nino [facility] Start: 10-28-2022 End: 10-28-2022 ambulatory Sydni Nino Other [employer] Other Start: 10-28-2022 Telephone encounter Sydni Nino [facility] Start: 09-21-2022 End: 09-21-2022 ambulatory Rebecca Magdaleno Other [employer] Other Start: 09-21-2022 Office outpatient ne w 20 minutes Rebecca Sharla [facility] Start: 02-28-2022 End: 03-01-[address] COLBY COPE Facility: Start: 11-18-2017 End: 11-19-2017 Patient encounter DEFAULT PHYSICIAN Facility:[facility] Procedures Date Procedure Procedure Detail Performing Clinician Start: 03-15-2024 Quick Strep (POC) Subha Nino MD Work Phone: Start: 05-11-2023 Quick Strep (POC) Payers Date Payer Category Payer Medicaid [id number] 2024 Self-pay [id number] 1998 Unknown [id number] 1998 Unknown [id number] 1961 Self-pay [id number] 1961 Unknown [id number] Unknown Unknown [id number] Social History Date Type Detail Facility Unknown if ever smoked [employer] Other Sex Assigned At Sex Assigned At Bir th [employer] Other Start: 2000 Sex Assigned At Male F [facility] Tobacco smoking status NHIS Unknown if ever smoked [facility] Work Phone: Start: 01-25-2024 End: 06-24-2024 Sex Male (finding) [facility] Clinical Notes 09-21-2022 to 03-15-2024 Note Date & Type Note Facility 03-15-2024 Evaluation note Diagnosis Onset Date Resolution Influenza A acute February 9:02am [facility] Work Phone: 1(488) 265-589609-16-2024 Evaluation note* Diagnosis Onset Date Resolution Status Admit Date Class 1 obesity with body mass index (BMI) of 33.0 to 33.9 in adult acute November 30, 2023 8:41am Class 1 obesity with body mass index (BMI) of 33.0 to 33.9 in adult acute December 16 10:09am HTN (hypertension) acute Octobe r 2023 10:09am [facility] Work Phone: 1(776) 546-906802-12-2024 Evaluation note* Encounter Date Diagnosis Assessment Notes Treatment Notes Treatment Clinical Notes Apr, Other obesity due to excess calories (ICD-10 - E66.09) Patient has clearly made a good markel effort for several months on her own to lose weight with little success. Pt to start Adipex daily. Medication is a stimulant. May cause you to be jittery or constipated. Take in the morning, may also take stool softener daily as needed. Continue to eat a healthy well balanced diet and continue work-out regimine. Pt aware that this is not a cure for obesity but a tool used to help them during their weight loss plateau. Pt aware that they need to continue to work hard at weight loss or the weight will be regained. Side effects discussed and understood. Pt education printed and discussed. Pt notified of prescribing schedule with 30 day dispensing, no refills, for up to 12 weeks, with a 6 month break in-between treatments. Id SOB, CP, mood changes, tachycardia, HTN, headaches, blurred vision occur, go to ER and Follow-up with me immediately. Apr, Body mass index [BMI] 32.0-32.9, adult (ICD-10 - Z68.32) [employer] Other 01-08-2024 Evaluation note* Encounter Date Diagnosis Assessment Notes Treatment Notes Treatment Clinical Notes Mar, Other obesity due to excess calories (ICD-10 - E66.09) Patient has clearly made a good markel effort for several months on her own to lose weight with little success. Pt to start Adipex daily. Medication is a stimulant. May cause you to be jittery or constipated. Take in the morning, may also take stool softener daily as needed. Continue to eat a healthy well balanced diet and continue work-out regimine. Pt aware that this is not a cure for obesity but a tool used to help them during their weight loss plateau. Pt aware that they need to continue to work hard at weight loss or the weight will be regained. Side effects discussed and understood. Pt education printed and discussed. Pt notified of prescribing schedule with 30 day dispensing, no refills, for up to 12 weeks, with a 6 month break in-between treatments. Id SOB, CP, mood changes, tachycardia, HTN, headaches, blurred vision occur, go to ER and Follow-up with me immediately. Mar, Body mass index [BMI] 32.0-32.9, adult (ICD-10 - Z68.32) [employer] Other 11-15-2023 Evaluation note* Encounter Date Diagnosis Assessment Notes Treatment Notes Treatment Clinical Notes Jan, Sore throat (ICD-10 - J02.9) Jan, Pharyngitis, unspecified etiology (ICD-10 - J02.9) Drink plenty fluids, get plenty of rest. Take the Medrol Dosepak as prescribed until gone. No intercourse until the results of your cultures. Always use condoms. You will be notified of your culture results in 4 to 5 days. If you have not heard from us and 1 week, call for your results. Follow-up with your family physician for any further concerns Jan, Concern about STD in male without diagnosis (ICD-10 - Z71.1) [employer] Other 11-10-2023 Evaluation note* Encounter Date Diagnosis Assessment Notes Treatment Notes Treatment Clinical Notes Jan, Other obesity due to excess calories (ICD-10 - E66.09) Patient has clearly made a good markel effort for several months on her own to lose weight with little success. Pt to start Adipex daily. Medication is a stimulant. May cause you to be jittery or constipated. Take in the morning, may also take stool softener daily as needed. Continue to eat a healthy well balanced diet and continue work-out regimine. Pt aware that this is not a cure for obesity but a tool used to help them during their weight loss plateau. Pt aware that they need to continue to work hard at weight loss or the weight will be regained. Side effects discussed and understood. Pt education printed and discussed. Pt notified of prescribing schedule with 30 day dispensing, no refills, for up to 12 weeks, with a 6 month break in-between treatments. Id SOB, CP, mood changes, tachycardia, HTN, headaches, blurred vision occur, go to ER and Follow-up with me immediately. Jan, Body mass index [BMI] 33.0-33.9, adult (ICD-10 - Z68.33) [employer] Other 10-10-2023 Evaluation note* Encounter Date Diagnosis Assessment Notes Treatment Notes Treatment Clinical Notes Dec, Other obesity due to excess calories (ICD-10 - E66.09) Dec, Body mass index [BMI] 34.0-34.9, adult (ICD-10 - Z68.34) Patient has clearly made a good markel effort for several months on her own to lose weight with little success. Pt to start Adipex daily. Medication is a stimulant. May cause you to be jittery or constipated. Take in the morning, may also take stool softener daily as needed. Continue to eat a healthy well balanced diet and continue work-out regimine. Pt aware that this is not a cure for obesity but a tool used to help them during their weight loss plateau. Pt aware that they need to continue to work hard at weight loss or the weight will be regained. Side effects discussed and understood. Pt education printed and discussed. Pt notified of prescribing schedule with 30 day dispensing, no refills, for up to 12 weeks, with a 6 month break in-between treatments. Id SOB, CP, mood changes, tachycardia, HTN, headaches, blurred vision occur, go to ER and Follow-up with me immediately. [employer] Other 09-16-2023 Evaluation note* Encounter Date Diagnosis Assessment Notes Treatment Notes Treatment Clinical Notes Nov, Sore throat (ICD-10 - J02.9) Nov, Strep pharyngitis (ICD-10 - J02.0) Strep throat material was printed Drink plenty fluids, get plenty of rest. Take the amoxicillin as prescribed until gone. You may continue to take your Zyrtec and Adipex as well. Take Tylenol or Motrin as needed for aches pains or fevers. Off work today and tomorrow. Follow-up with your family physician if no improvement in 2 to 3 days [employer] Other 08-21-2023 Evaluation note* Encounter Date Diagnosis Assessment Notes Treatment Notes Treatment Clinical Notes Oct, Other obesity due to excess calories (ICD-10 - E66.09) Patient has clearly made a good markel effort for several months on her own to lose weight with little success. Pt to continue Adipex daily for third month. Medication is a stimulant. May cause you to be jittery or constipated. Take in the morning, may also take stool softener daily as needed. Continue to eat a healthy well balanced diet and continue work-up regimine. Pt aware that this is not a cure for obesity but a tool used to help them during their weight loss plateau. Pt aware that they need to continue to work hard at weight loss or the weight will be regained. Side effects discussed and understood. Any onset of SOB, CP, mood changes, tachycardia, HTN, headaches, blurred vision occur, go to ER and Follow-up with our office immediately. Oct, Body mass index [BMI] 36.0-36.9, adult (ICD-10 - Z68.36) [employer] Other 08-15-2023 Evaluation note* Encounter Date Diagnosis Assessment Notes Treatment Notes Treatment Clinical Notes Oct, Other obesity due to excess calories (ICD-10 - E66.09) [employer] Other 07-09-2023 Evaluation note* Encounter Date Diagnosis Assessment Notes Treatment Notes Treatment Clinical Notes Sep, Sore throat (ICD-10 - J02.9) Sep, Viral pharyngitis (ICD-10 - J02.9) Pharyngitis/tonsil lopharyngitis: adult home care material was printed Drink plenty fluids, get plenty of rest. Take the prednisone as prescribed until gone. You may continue take Tylenol or Motrin as needed for aches pains or fevers. May take DayQuil or NyQuil for symptom control. Off work today and tomorrow. Follow-up with your family physician if no improvement in 2 to 3 days [employer] Other Evaluation note* Diagnosis Onset Date Resolution Status Acute bacterial pharyngitis acute COVID-19 acute Sinusitis, acute maxillary a cute Body mass index [BMI] 32.0-32.9, adult acute [facility] Work Phone: Evaluation note* Diagnosis Onset Date Resolution Status Class 1 obesity with body ma ss index (BMI) of 33.0 to 33.9 in adult acute [facility] Work Phone: Evaluation note* Diagnosis Onset Date Resolution Status Admit Date Class 2 obesity with body ma ss index (BMI) of 36.0 to 36.9 in adult acute June 24, 2024 9:08am [facility] Work Phone: [facility] general Narrative - Reported* Type Description Date Hospitalization History No know Hospitalization history [employer] Other [facility] Narrative - Reported* Type Description Date Medical History Anxiety with depression Medical History Low testosterone in male Surgical History No Surgical history information Hospitalization History No Hospitalization histo ry information [employer] Other History general Narrative - Reported* Type Description Date Medical History Anxiety with depression Medical History Low testosterone in male Surgical History No know Surgical history Hospitalization History No know Hospitalization history [employer] Other Summary Purpose Family History No Family History Records Found Relationship Condition Age at Onset Recorded Date/T an[place] father Hypertension Unknown Advance Directives No Advanced Directives Records Found Advance Directive Response Recorded Date/ Time Advance Directives No June 22 4:58pm Advance Directive Response Recorded Date/ Time Advance Directives No June 22 3:58pm Chief Complaint and Reason for Visit Chief Complaint Adipex Check Up sore throat COVID POSITIVE ADIPEX CHECK UP Reason for Visit Acute bacterial phar yngitis COVID-19 Sinusitis, acute maxillary Body mass index [BMI] 32.0-32.9, adult Chief Complaint discuss weight loss meds Reason for Visit Class 1 obesity with body mass index (BMI) of 33.0 to 33.9 in adult Chief Complaint discuss weight loss meds BP Check Up Reason for Visit Class 1 obesity with body mass index (BMI) of 33.0 to 33.9 in adult Chief Complaint Admit Date discuss weight loss meds November 30, 2023 8:41am BP Check Up December 17, 2023 10 :09am BP Check/Headache January 25, 2024 10:36am Reason for Visit Admit Date Class 1 obesity with body ma ss index (BMI) of 33.0 to 33.9 in adult November 30, 2023 8:41am Class 1 obesity with body ma ss index (BMI) of 33.0 to 33.9 in adult December 17, 2023 10:09am HTN (hypertension) December 17, 2023 10 :09am Chief Complaint Admit Date neck pain February 09, 2024 8:00am sore throat, cough, congestion March 15, 2024 9:02am Reason for Visit Admit Date Influenza A March 15, 2024 9:02am Chief Complaint Admit Date Discuss Adipex June 24, 2024 9:0 8am Reason for Visit Admit Date Class 2 obesity with body ma ss index (BMI) of 36.0 to 36.9 in adult June 24, 2024 9:08am Additional Source Comments (unrecognized sect ion and content) No Status Records FoundNo Status Records FoundNo Status Records FoundNo Status Records Found INFORMATION SOURCE (unrecogn ized section and content) DATE CREATED AUTHOR 11/26/2017 [facility] DATE CREATED AUTHOR AUTHOR'S ORGANIZ ATION [facility]/22/[facility] DATE CREATED AUTHOR AUTHOR'S ORGANIZ ATION 03/06/2022 [facility] DATE CREATED AUTHOR AUTHOR'S ORGANIZ ATION 07/07/2024 [facility] REASON FOR VISIT (unrecogniz ed section and content) STREP?, SORE THROAT, COUGH A ND SWALLOW IT HURTSrefillADIPEX CHECKsore throatadipex checkADIPEX CHECK UPSORE THROAT, SINUS CONGESTION, COUGHADIPEX CHECK UPadipex check Care Teams (unrecognized sec tion and content) Team Status: Active Member Role Status Dates Sydni Nino MD Primary Care Provider Active Team Status: Inactive Member Role Status Dates Sydni Nino MD Primary Care Provide r, Attending Provider Active Start: February 09, 2024 End: February 09, 2024 Team Status: Inactive Member Role Status Dates Sydni Nino MD Primary Care Provider Active Start: March 15, 2024 End: March 15, 2024 Meryl Quiroz APRN Attending Provider Active S tart: March 15, 2024 End: March 15, 2024 Team Status: Active Member Role Status Dates Sydni Nino MD Primary Care Provider Active Start: November 08, 2023 Juli Pacheco DO Attending Provider Active Start: November 08, 2023 Team Status: Active Member Role Status Dates Sydni Nino MD Primary Care Provider Active Start: November 09, 2023 Ranulfo Ojeda DO Attending Provider Active Sta rt: November 09, 2023 Team Status: Inactive Member Role Status Sara Nino MD Primary Care Provide r, Attending Provider Active Start: November 30, 2023 End: November 30, 2023 Team Status: Inactive Member Role Status Sara Nino MD Attending Provider Active St art: March 23, 2023 End: March 23, 2023 Team Status: Inactive Member Role Status Sara Nino MD Primary Care Provider Active Start: May 11, 2023 End: May 11, 2023 Meryl Quiroz APRN Attending Provider Active S tart: May 11, 2023 End: May 11, 2023 Team Status: Inactive Member Role Status Dates Sydni Nino MD Primary Care Provide r, Attending Provider Active Start: May 14, 2023 End: May 14, 2023 Team Status: Inactive Member Role Status Dates Sydni Nino MD Primary Care Provide r, Attending Provider Active Start: June 15, 2023 End: June 15, 2023 Team Status: Inactive Member Role Status Dates Sydni Nino MD Primary Care Provide r, Attending Provider Active Start: December 17, 2023 End: December 17, 2023 Team Status: Inactive Member Role Status Dates Sydni Nino MD Primary Care Provide r, Attending Provider Active Start: January 25, 2024 End: January 25, 2024 Team Status: Inactive Member Role Status Dates Sydni Nino MD Primary Care Provide r, Attending Provider Active Start: June 24, 2024 End: June 24, 2024 Goals (unrecognized section and content) Goals may be documented in a n alternate section FOR RECORDS PERTAINING TO PATIENTS WHO ARE OR HAVE BEEN ENROLLED IN A CHEMICAL DEPENDENCY/SUBSTANCEABUSE PROGRAM, SOME INFORMATION MAY BE OMITTED. This clinical summary was aggregated from multiple sources. Caution should be exercised in using it in the provision of clinical care. This summary normalizes information from multiple sources, and as a consequence, information in this document may materially change the coding, format and clinical context of patient data. In addition, data may be omitted in some cases. CLINICAL DECISIONS SHOULD BE BASED ON THE PRIMARY CLINICAL RECORDS. [facility] [employer] [facility]. provides no warranty or guarantee of the accuracy or completeness of information in this document.
[2024-08-31 10:11] LABS: Estimated Average Glucose 111 mg/dL; Glycohemoglobin A1C 5.5 % (4.5-6.2)
[2024-08-31 10:22] LABS: Alanine Aminotransferase 28 U/L (16-63); Albumin Globulin Ratio 1.2; Albumin Level 4.3 g/dL (3.4-5.0); Alkaline Phosphatase 70 U/L (46-116); Anion Gap 13.2; Aspartate Amino Transferase 21 U/L (15-37); BUN Creatinine Ratio 16.1; Bilirubin Total 0.7 mg/dL (0.2-1.0); Calcium 9.2 mg/dL (8.5-10.1); Carbon Dioxide 28.4 mmol/L (21.0-32.0); Chloride 102 mmol/L (98-107); Chol HDL Ratio 4.7; Cholesterol 179 mg/dL (<=200); Estimated GFR (African America >60 (>=60 mL/min/1.73m^2); Estimated GFR (Non-African Ame >60 (>=60 mL/min/1.73m^2); Globulin 3.6 g/dL; Glucose 97 mg/dL (74-106); HDL Cholesterol 38 mg/dL (40-60); Potassium 4.6 mmol/L (3.5-5.1); Sodium 139 mmol/L (136-145); TSH W/ REFLEX FT4 2.484 uIU/mL (0.358-3.740); Total Protein 7.9 g/dL (6.4-8.2); Triglycerides 159 mg/dL (<=150); VLDL CHOLESTEROL 31.8 mg/dL
[2024-09-01 04:07] LABS: Vitamin B12 523 pg/mL (232-1245)
== END 2024-08-31 09:40 | disposition home or self-care (01) ==
LOC: LAB 09:42
PROVIDERS: PCP Family Medicine
DX: R51.9 Headache, unspecified (principal); E66.812 Obesity, class 2; E66.09 Other obesity due to excess calories; Z68.36 Body mass index [BMI] 36.0-36.9, adult; I10 Essential (primary) hypertension; R73.01 Impaired fasting glucose; E55.9 Vitamin D deficiency, unspecified
CPT/HCPCS: 36415; 80053; 80061; 82306; 82607; 83036; 84443